=== PATIENT | female | born 1960 | race Caucasian/White ===

== ENCOUNTER → 2021-08-25 | Outpatient (CLI) | payer MEDICARE | LOC: ORTHO 10:11 | PROVIDERS: ATTEND Orthopaedic Surgery | DX: G56.02 Carpal tunnel syndrome, left upper limb (principal) ==

== ENCOUNTER 2021-09-09 05:27 | Outpatient (CLI) | payer OTHER ==
[~2021-09-09] VITALS: Ht 149.9 cm; Wt 43.2 kg
[2021-09-09] MEDS ORDERED: VILA20TA PO (15:37)
[2021-09-09] MEDS ORDERED: RT-ALBUINH INH (15:37)
[2021-09-09] MEDS ORDERED: PREG75CA75 PO (15:37)
[2021-09-09] MEDS ORDERED: HYDR-3820 PO (15:37)
[2021-09-09] MEDS ORDERED: ACET500C41 PO (15:37)
[2021-09-09] MEDS ORDERED: BACL10TA PO (15:37)
[2021-09-09] MEDS ORDERED: CARI1.5C PO (15:37)
[2021-09-09] MEDS ORDERED: NALO4SPR NS (15:37)
[2021-09-09] MEDS ORDERED: DIAZ10TA PO (15:37)
[2021-09-09] MEDS ORDERED: REVE175V IH (15:37)
[2021-09-09] MEDS ORDERED: TRM50T PO (15:37)
[2021-09-09] MEDS ORDERED: BUSP10TA95 PO (15:37)
[2021-09-09] MEDS ORDERED: CITA20TA9 PO (15:37)
[2021-09-09] MEDS ORDERED: IPRA3AMP31 IH (15:37)
[2021-09-09] MEDS ORDERED: [UNRECOGNIZED DRUG - CODE] PO (15:37)
== END 2021-09-09 15:44 | disposition home or self-care (01) ==
LOC: PREOP 05:27
PROVIDERS: ATTEND Orthopaedic Surgery
DX: Z01.818 Encounter for other preprocedural examination (principal)

== ENCOUNTER 2021-09-16 05:51 | Day surgery (SDC) | payer MEDICARE, OTHER ==
[~2021-09-16] VITALS: Ht 149.9 cm; Wt 43.2 kg
[2021-09-16] VITALS (8 sets, daily range): BP systolic 113–177; BP diastolic 78–95
[~2021-09-16 05:51] MED LIST: ACET500C41 PO; BACL10TA PO; BUSP10TA95 PO; CARI1.5C PO; CITA20TA9 PO; DIAZ10TA PO; HYDR-3820 PO; IPRA3AMP31 IH; NALO4SPR NS; PREG75CA75 PO; REVE175V IH; RT-ALBUINH INH; TRM50T PO; VILA20TA PO; [UNRECOGNIZED DRUG - CODE] PO
[2021-09-16] MEDS ORDERED: ceFAZolin INJECTION 1,000 MG ONE (06:24)
[2021-09-16] MEDS ORDERED: NEO/POLY/BAC (NEOSPORIN) OINT 15 GM TUBE ONE (06:42)
[2021-09-16] MEDS ORDERED: BUPIVACAINE 0.5% 30 ML (SENSORCAINE) VIAL ONE (06:42)
[2021-09-16] MEDS ORDERED: MIDAZOLAM 2 MG/2 ML (VERSED) VIAL ONE ×2 (06:52→07:03)
[2021-09-16] MEDS ORDERED: MIDAZOLAM 2 MG/2 ML (VERSED) VIAL IV ONE (07:00)
[2021-09-16] MEDS ORDERED: LACTATED RINGERS 1,000 ML IV PRN ×2 (07:00→07:45)
[2021-09-16] MEDS ORDERED: LIDOCAINE PF 0.5% 50 ML (XYLOCAINE) VIAL ONE (07:03)
--- NOTE | 2021-09-16 07:06 | Progress Note-Pre Operative ---
Pre-Operative Progress Note H&P Reviewed The H&P was reviewed, patient examined and no changes noted. Date Seen by Provider: Sep 16, 2021 Time Seen by Provider: 07:00 Date H&P Reviewed: Sep 16, 2021 Time H&P Reviewed: 07:00 Pre-Operative Diagnosis: Left Carpal Tunnel Release CRISTAL SAM MD Sep 16, 2021 07:06
[2021-09-16] MEDS ORDERED: PROPOFOL INJECTION 50 ML IV ONE (07:43)
[2021-09-16] MEDS ORDERED: ceFAZolin INJECTION 1,000 MG VIAL IV ONE (07:45)
--- NOTE | 2021-09-16 07:55 | Operative Report - Ortho ---
Operative Report Surgeon (s)/Shipyard Helper (s) Surgeon CRISTAL SAM MD Shipyard Helper n/a Pre-Operative Diagnosis Left Carpal Tunnel Syndrome Post-Operative Diagnosis same Operative Report Date of Procedure: Sep 16, 2021 Name of Procedure Performed: Left Carpal Tunnel Release Description & Findings After obtaining informed consent and marking the patient in the preoperative holding area, the patient was administered IV antibiotics. The patient was t aken to the operating room and cecilia block anesthesia was induced. The left upper extremity was prepped and draped in the usual sterile fashion. Surgical timeout was taken. Incision was made just ulnar to the thenar crease. Blunt dissection was carried down to the longitudinal fibers of the palmar fascia; these were divided in line revealing the transverse carpal ligament. Beginning distally and working proximally, carpal tunnel release was performed. Nerve protector was placed and release was completed back to the level of the forearm fascia. Probe was inserted and release was palpably complete. Tourniquet was dropped and hemostasis was achieved. Wound was closed with 4-0 nylon. Wound was dressed with antibiotic ointment, xeroform, 4x4s, ludin, ABD for soft splint, cast padding, and STEFANIE wrap. Patient tolerated the proceudre well and was stable to the recovery room. Anesthesia Type Cecilia Block Estimated Blood Loss minimal Specimen(s) collected/removed None CRISTAL SAM MD Sep 16, 2021 07:55
--- NOTE | 2021-09-16 10:24 | Anesthesia-General Post-Op ---
MAC Patient Condition Mental Status/LOC: Same as Preop Cardiovascular: Satisfactory Nausea/Vomiting: Absent Respiratory: Satisfactory Pain: Controlled Complications: Absent Post Op Complications Complications None Follow Up Care/Instructions Patient Instructions None needed. Anesthesiology Discharge Order Discharge Order Patient is doing well, no complaints, stable vital signs, no apparent adverse anesthesia problems. No complications reported per nursing. DOUGLAS DIAZ CRNA Sep 16, 2021 10:24
== END 2021-09-16 09:05 ==
LOC: SDC 05:51
PROVIDERS: ATTEND Orthopaedic Surgery
DX: G56.02 Carpal tunnel syndrome, left upper limb (principal); F17.210 Nicotine dependence, cigarettes, uncomplicated
CPT/HCPCS: 87081

== ENCOUNTER → 2021-10-06 | Outpatient (CLI) | payer MEDICARE | LOC: ORTHO 10:00 | PROVIDERS: ATTEND Orthopaedic Surgery | DX: Z47.89 Encounter for other orthopedic aftercare (principal) ==

== ENCOUNTER → 2021-11-08 | Outpatient (CLI) | payer MEDICARE | LOC: ORTHO 08:30 | PROVIDERS: ATTEND Orthopaedic Surgery | DX: G56.02 Carpal tunnel syndrome, left upper limb (principal) ==